=== PATIENT | female | born 1960 | race Caucasian/White ===

== ENCOUNTER 2017-02-17 21:41 | Emergency (ER) | payer OTHER, SELFPAY ==
[2017-02-17] MEDS ORDERED: Famotidine 20 MG/2 ML SDV IVPUSH ONE (21:59)
[2017-02-17] MEDS ORDERED: Sodium Chloride 0.9% 10 ML Syringe FLUSH PRN ×2 (21:59→22:00)
[2017-02-17] MEDS ORDERED: Aspirin 81 MG Tab.Chew CHEW ONE (21:59)
[2017-02-17] MEDS ORDERED: Metoprolol Tartrate 5 MG/5 ML SDV IVPUSH ONE (21:59)
[2017-02-17] MEDS ORDERED: Ticagrelor 90 MG Tab PO ONE (21:59)
--- NOTE | 2017-02-17 21:59 | EDM.PDOC ---
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 Medications Discontinued Medications Generic Name Dose Route Start Last Admin Trade Name Freq PRN Reason Stop Dose Admin Aspirin 324 mg 02/17/17 21:59 02/17/17 22:05 Aspirin CHEW 02/17/17 22:00 324 mg ONETIME ONE Administration Famotidine 40 mg 02/17/17 21:59 02/17/17 22:07 Pepcid IVPUSH 02/17/17 22:00 40 mg ONETIME ONE Administration Nitroglycerin/Dextrose 25 mg in 250 mls @ 6 mls/hr 02/17/17 22:15 Nitroglycerin 25 Mg/D5w 250 Ml IV TITRATE NI 10 MCG/MIN Sodium Chloride 1,000 mls @ 30 mls/hr 02/17/17 22:15 02/17/17 22:05 Normal Saline IV 30 mls/hr ASDIRECTED NI Administration Nitroglycerin/Dextrose 25 mg in 250 mls @ 3 mls/hr 02/17/17 22:13 02/17/17 22 :17 Nitroglycerin 25 Mg/D5w 250 Ml IV 5 mcg/min TITRATE NI 3 mls/hr 5 MCG/MIN Administration Nitroglycerin/Dextrose 25 mg in 250 mls @ 1.5 mls/hr 02/17/17 22:43 02/17/17 22:48 Nitroglycerin 25 Mg/D5w 250 Ml IV 2.5 mcg/min TITRATE NI 1.5 mls/hr 2.5 MCG/MIN Administration Metoprolol Tartrate 2.5 mg 02/17/17 21:59 02/17/17 22:04 Lopressor IVPUSH 02/17/17 22:00 2.5 mg ONETIME ONE Administration Potassium Chloride 40 meq 02/18/17 23:19 Klor-Con M20 PO 02/18/17 23:20 ONETIME ONE Potassium Chloride 40 meq 02/17/17 23:19 02/17/17 23:31 Klor-Con M20 PO 02/17/17 23:20 40 meq ONETIME ONE Administration Sodium Chloride 10 ml 02/17/17 21:59 02/17/17 22:37 Saline Flush FLUSH 10 ml ASDIRECTED PRN Administration Keep Vein Open Sodium Chloride 10 ml 02/17/17 22:00 Saline Flush FLUSH ASDIRECTED PRN Keep Vein Open Ticagrelor 180 mg 02/17/17 21:59 02/17/17 22:06 Brilinta PO 02/17/17 22:00 180 mg ONETIME ONE Administration - Radiology Interpretation Free Text/Narrative:: [employer] showed initial sinus rhythm with heart rate in the 70s with improvement to her heart rate to the 60s after IV Lopressor was given with no ectopy or arrhythmia Chest x-ray, portable, shows moderate cardiomegaly with additional moderate COPD changes and probable pulmonary hypertension and/or mild centralized CHF. No pulmonary infiltrates, pneumothorax, etc. Departure - Departure Time of Disposition: 23:50 Disposition: Against Medical Advice 07 Condition: Fair Clinical Impression: CVA, Cerebrovascular accident, Hypokalemia, Lactic acid increased, Mixed anxiety depressive disorder, Tobacco abuse counseling, Caries, Peptic reflux disease Chest pain Qualifiers: Chest pain type: chest pain due to myocardial ischemia Ischemic chest pain type : stable angina pectoris Qualified Code(s): I20.8 - Other forms of angina pectoris Coronary artery disease Qualifiers: Coronary Disease-Associated Artery/Lesion type: [place] artery [place] vs. transplanted heart: [place] heart Associated angina: with unstable angina Qualified Code(s): I25.110 - Atherosclerotic heart disease of [place] coronary artery with unstable angina pectoris COPD (chronic obstructive pulmonary disease) Qualifiers: COPD type: emphysema Emphysema type: panlobular Qualified Code(s): J43.1 - Panlobular emphysema Hypertension Qualifiers: Hypertension type: essential hypertension Qualified Code(s): I10 - Essential ( primary) hypertension - Discharge Information Instructions: Angina Pectoris, [id number] Referrals: Kendra Andrade PA-C [Primary Care Provider] - Forms: ED Department Discharge Additional Instructions: 1. Follow-up with your regular provider tomorrow morning for reevaluation and recommended repeat EKG, CBC, comprehensive metabolic panel, lactic acid level, CK, CK-MB, and troponin I 2. Psychiatric counseling/referral for your current stressors, alcohol use, etc. strongly recommended EDEN with this to be discussed with the regular provider at above follow-up visit 3. Stop all tobacco use EDEN as directed/per provided information and consider contacting [employer], etc.. 4. 25% maximum exercise restriction recommended until your heart status has been determined 5. Follow up with your dentist EDEN - Problem List & Annotations (1) Chest pain SNOMED Code(s): 95967749 Code(s): R07.9 - CHEST PAIN, UNSPECIFIED Status: Acute Priority: High Onset Date: 02/17/17 Annotation/Comment:: Chest pain protocol immediately initiated on patient's arrival in the emergency room. Note that patient's blood pressure was 177/107 initially taken by the paramedics. Secondary to refractory chest pain patient was started on a nitroglycerin infusion with subsequent discontinuation secondary to some mild hypotension. Chest pain did not recur prior to patient's discharge. Despite my strong recommendations to be transferred to [facility] for further cardiac evaluation, psychiatric evaluation, etc. the patient refuses transfer and did leave A. Close follow-up by her regular provider as per discharge instructions. Note mild borderline leukocytosis likely secondary to stress reaction Qualifiers: Chest pain type: chest pain due to myocardial ischemia Ischemic chest pain type: stable angina pectoris Qualified Code(s): I20.8 - Other forms of angina pectoris (2) Coronary artery disease SNOMED Code(s): 67147671 Code(s): I25.10 - ATHSCL HEART DISEASE OF [place] CORONARY ARTERY W/O ANG PCTRS Status: Chronic Priority: Medium Annotation/Comment:: Previous history of [place] with inferolateral cardiac ischemia based on today's EKG, although this was also present at time of her last CVA Qualifiers: Coronary Disease-Associated Artery/Lesion type: [place] artery [place] vs. transplanted heart: [place] heart Associated angina: with unstable angina Qualified Code(s): I25.110 - Atherosclerotic heart disease of [place] coronary artery with unstable angina pectoris (3) Mixed anxiety depressive disorder SNOMED Code(s): 445953081 Code(s): F41.8 - OTHER SPECIFIED ANXIETY DISORDERS Status: Acute Priority : High Annotation/Comment:: Suicidal ideation with plan as above. Patient denies plan to hurt herself at this time and also requests to leave AMA. Emotional support provided. She did not wish to discuss current stressors in detail with me today. Psychiatric counseling and treatment EDEN strongly encouraged, including probable alcohol treatment, etc. (4) CVA, Cerebrovascular accident SNOMED Code(s): 308748695 Code(s): I63.9 - CEREBRAL INFARCTION, UNSPECIFIED Status: Acute Priority : High Onset Date: 11/16/13 Annotation/Comment:: Per nursing staff brief episode of nonresponsiveness lasting for only a few seconds with no seizure activity, postictal sedation, etc. Note previous history of recurrent CVA as above. Stable chronic occasional headaches. No neurological deficits at this time by clinical exam. Stroke code was not called in this facility since chest pain was the initial complaint. Note alcohol use earlier today no previous history of DTs or alcohol-induced seizures. (5) Lactic acid increased SNOMED Code(s): 08830455 Code(s): E87.2 - ACIDOSIS Status: Acute Priority: High Onset Date: 06/04 Annotation/Comment:: IV fluids given in the emergency room. Repeat lactic acid level tomorrow with regular provider. No evidence of fever with sepsis, etc. (6) Caries SNOMED Code(s): 68013864 Code(s): K02.9 - DENTAL CARIES, UNSPECIFIED Status: Chronic Priority: Medium Annotation/Comment:: Patient strongly recommended to follow-up with her dentist EEDN (7) Tobacco abuse counseling SNOMED Code(s): 685020363, 545447246 Code(s): Z71.6 - TOBACCO ABUSE COUNSELING Status: Chronic Priority: Medium Annotation/Comment:: Tobacco cessation strongly encouraged with information provided (8) Hypokalemia SNOMED Code(s): 06057840 Code(s): E87.6 - HYPOKALEMIA Status: Chronic Priority: Medium Annotation/Comment:: Previous history of intermittent chronic hypokalemia with no current medical therapy. Potassium chloride given in the emergency room with close follow-up by regular provider (9) COPD (chronic obstructive pulmonary disease) SNOMED Code(s): 78096139 Code(s): J44.9 - CHRONIC OBSTRUCTIVE PULMONARY DISEASE, UNSPECIFIED Status : Chronic Priority: Medium Annotation/Comment:: COPD by chest x-ray with no recent fever or bronchitic type symptoms. No current medical therapy. She would benefit from tobacco cessation, PFTs, etc. Note mild polycythemia today Qualifiers: COPD type: emphysema Emphysema type: panlobular Qualified Code(s): J43.1 - Panlobular emphysema (10) Peptic reflux disease SNOMED Code(s): 60827478 Code(s): K21.9 - GASTRO-ESOPHAGEAL REFLUX DISEASE WITHOUT ESOPHAGITIS Status: Chronic Priority: Medium Annotation/Comment:: High-dose IV Pepcid given as GI prophylaxis. Consider further workup depending on her clinical course, including possible EGD, H. pylori evaluation, etc. (11) Hypertension SNOMED Code(s): 10497680 Code(s): I10 - ESSENTIAL (PRIMARY) HYPERTENSION Status: Acute Priority: High Onset Date: 02/17/17 Annotation/Comment:: Significant elevated blood pressure taken by paramedics as above. No previous history of hypertension. Continue to observe closely by her regular provider. Note overall good response to nitroglycerin infusion with some secondary borderline hypotension without sequelae Qualifiers: Hypertension type: essential hypertension Qualified Code(s): I10 - Essential (primary) hypertension - Problem List Review Problem List Initiated/Reviewed/Updated: Yes - My Orders Last 24 Hours: My Active Orders 02/17/17 21:59 Resuscitation Status Stat 02/17/17 22:00 Cardiac Monitoring [RC] . DIRECTED EKG Documentation Completion [RC] ASDIRECTED Oxygen Therapy, ED [RC] CONTINUOUS Peripheral IV Care [RC] . DIRECTED Pulse Oximetry [RC] CONTINUOUS Up With Assistance [RC] PFP Vital Signs [RC] PFP Chest 1V Frontal [CR] Stat Obtain Past Medical Record [OM.PC] Urgent Peripheral IV Insertion Adult [OM.PC] Stat 02/17/17 22:01 Peripheral IV Insertion Adult [OM.PC] Stat 02/17/17 23:05 CULTURE URINE [RM] Routine - Assessment/Plan Last 24 Hours: My Active Orders 02/17/17 21:59 Resuscitation Status Stat 02/17/17 22:00 Cardiac Monitoring [RC] . DIRECTED EKG Documentation Completion [RC] ASDIRECTED Oxygen Therapy, ED [RC] CONTINUOUS Peripheral IV Care [RC] . DIRECTED Pulse Oximetry [RC] CONTINUOUS Up With Assistance [RC] PFP Vital Signs [RC] PFP Chest 1V Frontal [CR] Stat Obtain Past Medical Record [OM.PC] Urgent Peripheral IV Insertion Adult [OM.PC] Stat 02/17/17 22:01 Peripheral IV Insertion Adult [OM.PC] Stat 02/17/17 23:05 CULTURE URINE [RM] Routine Assessment:: As above Plan: As above. Patient did leave AMA
[2017-02-17] MEDS: Sodium Chloride 0.9% 1,000 ML IV SCH ×2 (22:05→22:10)
[2017-02-17] MEDS ORDERED: Nitroglycerin/D5W 25 MG/250 ML BOTTLE IV SCH ×3 (22:13→22:43)
[2017-02-17 22:51] LABS: CHLORIDE,CL 100 mmol/L (98-107); SODIUM,NA 136 mmol/L (136-145)
[2017-02-17] MEDS ORDERED: Potassium Chloride 20 MEQ Tab.ER PO ONE (23:19)
[2017-02-18] VITALS: BP 98/57
[2017-02-18] MEDS ORDERED: Potassium Chloride 20 MEQ Tab.ER PO ONE (23:19)
== END 2017-02-17 23:51 | disposition left against medical advice (07) ==
LOC: LL.ED 21:41
DX: I63.9 Cerebral infarction, unspecified (principal); E87.2 Acidosis; F41.8 Other specified anxiety disorders; E87.6 Hypokalemia; K02.9 Dental caries, unspecified; I25.10 Atherosclerotic heart disease of native coronary artery without angina pectoris; K21.9 Gastro-esophageal reflux disease without esophagitis; Z79.82 Long term (current) use of aspirin; Z87.891 Personal history of nicotine dependence; Z71.6 Tobacco abuse counseling; Z88.0 Allergy status to penicillin
CPT/HCPCS: 36415; 71010; 80053; 80305; 81001; 82550; 82553; 83605; 83735; 83880; 84443; 84484; 84550; 85025; 85379; 85610; 85730; 87086; 93005; 96361; 96365; 96374; 96375; 99285; A9270; G0480; J7030; J7050; 93010; 99284; J3490; S0028

== ENCOUNTER 2017-06-09 09:02 | Day surgery (SDC) | payer MEDICAID, OTHER ==
[2017-06-09] MEDS ORDERED: Sodium Chloride 0.9% 10 ML Syringe FLUSH PRN (09:30)
[2017-06-09] MEDS ORDERED: Lactated Ringers 1,000 ML IV SCH (09:30)
[2017-06-09] MEDS ORDERED: fentaNYL 100 MCG/2 ML SDV ONE (10:15)
[2017-06-09] MEDS ORDERED: Midazolam 1 MG/ML 2 ML SDV ONE (10:16)
[2017-06-09] MEDS ORDERED: Propofol 200 MG/20 ML SDV ONE (10:16)
[2017-06-09] MEDS ORDERED: Propofol 200 MG/20 ML SDV IV ONE (10:20)
--- NOTE | 2017-06-09 10:49 | PCM.HPR ---
H & P Addendum review - H & P Addendum Review Date of Original H & P: 05/17/17 Date Reviewed: 06/09/17 Time Reviewed: 10:00 Patient was Examined: No Changes
--- NOTE | 2017-06-09 10:50 | PCM.OPNOTE ---
- General Post-Op/Procedure Note Date of Surgery/Procedure: 06/09/17 Operative Procedure(s): Colonoscopy Findings: Normal Pre Op Diagnosis: Screening Post-Op Diagnosis: Same Anesthesia Technique: MAC Primary Surgeon: Shane Barbosa Anesthesia Provider: Rosalee Farah Complications: None Condition: Good Free Text/Narrative:: Intake & Output 06/08/17 06/09/17 06/09/17 22:59 06:59 14:59 Intake Total 700 Balance 700
--- NOTE | 2017-06-09 14:07 | OR ---
Date of Procedure: 06/09/2017 PREOPERATIVE DIAGNOSIS: Colon screening. POSTOPERATIVE DIAGNOSIS: Normal colonoscopy. PROCEDURE: Colonoscopy. ANESTHESIA: IV sedation. DESCRIPTION OF PROCEDURE: The patient was brought to the procedure room, where she was placed on her left side and IV sedation administered. Digital rectal exam was performed, which was normal. The colonoscope was inserted and advanced to the level of the cecum without difficulty. Cecal position was confirmed by identifying the appendiceal lumen and ileocecal valve. Prep was good and surfaces were well visualized. Upon withdrawing the scope, the ascending, transverse, and descending colon were normal in appearance. Sigmoid colon was somewhat tortuous, but otherwise normal. Rectum was normal and retroflexion was normal. Air was removed and the scope withdrawn. The patient tolerated procedure well and returned to recovery in stable condition. Recommend routine colon screening in 10 years. MEHDI CUMMINS MD /[id number]
[2017-06-09 16:10] VITALS: BP 124/75
== END 2017-06-09 11:58 | disposition home or self-care (01) ==
LOC: LL.SDS 09:02
PROVIDERS: ATTEND Surgery
DX: Z12.11 Encounter for screening for malignant neoplasm of colon (principal); E78.5 Hyperlipidemia, unspecified; F17.210 Nicotine dependence, cigarettes, uncomplicated; Z90.49 Acquired absence of other specified parts of digestive tract; Z88.0 Allergy status to penicillin; Z90.710 Acquired absence of both cervix and uterus; Z79.82 Long term (current) use of aspirin; Z79.899 Other long term (current) drug therapy
CPT/HCPCS: 45378; J2250; J2704; J3010; J7120

== ENCOUNTER 2017-06-14 19:29 | Emergency (ER) | payer MEDICAID ==
[2017-06-14] MEDS ORDERED: Ticagrelor 90 MG Tab PO ONE ×2 (19:36→19:42)
[2017-06-14] MEDS ORDERED: Famotidine 20 MG/2 ML SDV IVPUSH ONE (19:36)
--- NOTE | 2017-06-14 19:36 | EDM.PDOC ---
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 Priority: Medium Current Visit: Yes Annotation/Comment:: Patient strongly recommended to follow-up with her dentist EDEN once her cardiac status has been determined (6) COPD (chronic obstructive pulmonary disease) SNOMED Code(s): 88739211 Code(s): J44.9 - CHRONIC OBSTRUCTIVE PULMONARY DISEASE, UNSPECIFIED Status : Chronic Priority: Medium Current Visit: Yes Annotation/Comment:: COPD by chest x-ray with no recent fever or bronchitic type symptoms. No current medical therapy. She would benefit from tobacco cessation, PFTs, etc. Note mild polycythemia today Qualifiers: COPD type: emphysema Emphysema type: panlobular Qualified Code(s): J43.1 - Panlobular emphysema (7) Peptic reflux disease SNOMED Code(s): 09759426 Code(s): K21.9 - GASTRO-ESOPHAGEAL REFLUX DISEASE WITHOUT ESOPHAGITIS Status: Chronic Priority: Medium Current Visit: Yes Annotation/Comment:: High-dose IV Pepcid given as GI prophylaxis. Consider further workup depending on her clinical course, including possible EGD, H. pylori evaluation, etc. (8) Hypertension SNOMED Code(s): 21449343 Code(s): I10 - ESSENTIAL (PRIMARY) HYPERTENSION Status: Acute Priority: High Current Visit: Yes Onset Date: 02/17/17 Annotation/Comment:: Blood pressures were stable in the emergency room. Continue to observe closely secondary to IV nitroglycerin infusion, etc. Qualifiers: Hypertension type: essential hypertension Qualified Code(s): I10 - Essential (primary) hypertension - Problem List Review Problem List Initiated/Reviewed/Updated: Yes - My Orders Last 24 Hours: My Active Orders 06/14/17 19:36 Cardiac Monitoring [RC] . DIRECTED EKG Documentation Completion [RC] ASDIRECTED Oxygen Therapy, ED [RC] CONTINUOUS Peripheral IV Care [RC] . DIRECTED Pulse Oximetry [RC] CONTINUOUS Up With Assistance [RC] PFP Vital Signs [RC] PFP Chest 1V Frontal [CR] Stat Sodium Chloride 0.9% [Saline Flush] 10 ml FLUSH ASDIRECTED PRN Obtain Past Medical Record [OM.PC] Urgent Peripheral IV Insertion Adult [OM.PC] Stat Resuscitation Status Stat 06/14/17 20:38 Peripheral IV Care [RC] . DIRECTED Sodium Chloride 0.9% [Saline Flush] 10 ml FLUSH ASDIRECTED PRN Peripheral IV Insertion Adult [OM.PC] Stat 06/14/17 20:45 Heparin Sodium/D5W [Heparin 25,000 Units in D5W 500 ML] 25,000 units in 500 ml IV TITRATE Nitroglycerin/D5W [Nitroglycerin 25 MG/D5W 250 ML] 25 mg in 250 ml IV TITRATE 06/14/17 Breakfast Nothing per Oral Now Diet [DIET] - Assessment/Plan Last 24 Hours: My Active Orders 06/14/17 19:36 Cardiac Monitoring [RC] . DIRECTED EKG Documentation Completion [RC] ASDIRECTED Oxygen Therapy, ED [RC] CONTINUOUS Peripheral IV Care [RC] . DIRECTED Pulse Oximetry [RC] CONTINUOUS Up With Assistance [RC] PFP Vital Signs [RC] PFP Chest 1V Frontal [CR] Stat Sodium Chloride 0.9% [Saline Flush] 10 ml FLUSH ASDIRECTED PRN Obtain Past Medical Record [OM.PC] Urgent Peripheral IV Insertion Adult [OM.PC] Stat Resuscitation Status Stat 06/14/17 20:38 Peripheral IV Care [RC] . DIRECTED Sodium Chloride 0.9% [Saline Flush] 10 ml FLUSH ASDIRECTED PRN Peripheral IV Insertion Adult [OM.PC] Stat 06/14/17 20:45 Heparin Sodium/D5W [Heparin 25,000 Units in D5W 500 ML] 25,000 units in 500 ml IV TITRATE Nitroglycerin/D5W [Nitroglycerin 25 MG/D5W 250 ML] 25 mg in 250 ml IV TITRATE 06/14/17 Breakfast Nothing per Oral Now Diet [DIET] Assessment:: As above. Extensive precautions were given to the patient and her son Juan, who are in agreement with the treatment plan. Ambulance transfer with revenue officer accompaniment
[2017-06-14] MEDS ORDERED: fentaNYL 100 MCG/2 ML SDV IVPUSH ONE (19:38)
[2017-06-14] MEDS ORDERED: Ondansetron 4 MG/2 ML SDV IVPUSH ONE (19:38)
[2017-06-14] MEDS: Sodium Chloride 0.9% 10 ML Syringe FLUSH PRN ×2 (19:44→20:44)
[2017-06-14 20:09] LABS: CHLORIDE,CL 100 mmol/L (98-107); SODIUM,NA 135 mmol/L (136-145)
[2017-06-14] MEDS ORDERED: Nitroglycerin 2% Oint 1 GM UD Packet TOP ONE (20:18)
[2017-06-14] MEDS ORDERED: Heparin Sodium 5,000 Units/ML Vial IVPUSH ONE (20:37)
[2017-06-14] MEDS ORDERED: Sodium Chloride 0.9% 10 ML Syringe FLUSH PRN (20:38)
[2017-06-14] MEDS ORDERED: Nitroglycerin/D5W 25 MG/250 ML BOTTLE IV SCH (20:45)
[2017-06-14] MEDS ORDERED: Heparin Sodium/D5W 25,000 UNITS/500 ML BAG IV SCH (20:45)
[2017-06-14 21:39] VITALS: BP 108/58
== END 2017-06-14 21:55 ==
LOC: LL.ED 19:29
DX: I24.9 Acute ischemic heart disease, unspecified (principal); J44.9 Chronic obstructive pulmonary disease, unspecified; K21.9 Gastro-esophageal reflux disease without esophagitis; F41.8 Other specified anxiety disorders; K02.9 Dental caries, unspecified; E78.00 Pure hypercholesterolemia, unspecified; I10 Essential (primary) hypertension; F17.210 Nicotine dependence, cigarettes, uncomplicated; Z88.0 Allergy status to penicillin; Z71.6 Tobacco abuse counseling; Z79.82 Long term (current) use of aspirin; Z79.899 Other long term (current) drug therapy
CPT/HCPCS: 36415; 71045; 80053; 82550; 82553; 83605; 83735; 83880; 84443; 84484; 84550; 85025; 85379; 85610; 85730; 93005; 96365; 96375; 99285; A9270; G0480; J1644; J2405; J3010; J7050; S0028

== ENCOUNTER 2018-05-23 11:53 | Emergency (ER) | payer MEDICAID ==
[2018-05-23] MEDS ORDERED: Sodium Chloride 0.9% 10 ML Syringe FLUSH PRN (12:12)
[2018-05-23] MEDS ORDERED: Albuterol/Ipratropium 3.0-0.5 MG/3 ML Neb Soln NEB ONE (12:29)
[2018-05-23 12:49] LABS: CHLORIDE,CL 103 mmol/L (98-107); SODIUM,NA 139 mmol/L (136-145)
[2018-05-23 12:57] VITALS: BP 124/89
[2018-05-23] MEDS ORDERED: Acetaminophen/Codeine 300-30 MG Tab PO ONE (13:07)
[2018-05-23] MEDS ORDERED: predniSONE 20 MG Tab PO ONE (13:07)
[2018-05-23] MEDS ORDERED: Benzonatate 100 MG Cap PO ONE (13:08)
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
== END 2018-05-23 13:40 | disposition home or self-care (01) ==
LOC: LL.ED 11:53
DX: J98.9 Respiratory disorder, unspecified (principal); B97.89 Other viral agents as the cause of diseases classified elsewhere; I25.10 Atherosclerotic heart disease of native coronary artery without angina pectoris; E78.00 Pure hypercholesterolemia, unspecified; I10 Essential (primary) hypertension; J44.9 Chronic obstructive pulmonary disease, unspecified; F17.210 Nicotine dependence, cigarettes, uncomplicated; Z88.0 Allergy status to penicillin; Z79.82 Long term (current) use of aspirin; Z79.899 Other long term (current) drug therapy
CPT/HCPCS: 36000; 36415; 71046; 80053; 82550; 82553; 83735; 84484; 85025; 93005; 94640; 99285; A9270-GY; J7620-GY